=== PATIENT | male | born 1960 | race Caucasian/White ===

== ENCOUNTER → 2018-07-29 15:20 | Outpatient (CLI) | payer OTHER, SELFPAY ==
--- NOTE | 2018-07-29 | LES_PTH ---
PATIENT: JOANA ALVARADO LOC: [facility] U#:[id number] AGE/SX: 64/M ROOM: RE07/29/[address]: Dr. Onesimo Overton MD : [id number] BED: DIS: SPEC #: [id number] RECD: 07/29/18 15:18 STATUS: ALMA MARY #: [id number] JC: 07/29/18 00:[address]: Onesimo Overton DEPT: SURGICAL PATHOLOGY RECD BY: Sha Ricci ENTERED: 07/30/18 12:57 SP TYPE: Lesion OTHR DR: GILDA Tissues: Skin of external ear, NOS Procedures: Surgery Specimen Level IV HEADER OPERATION: Right ear lesion excision with local PRE-OP DIAGNOSIS: Right ear lesion (back of) TISSUE SUBMITTED: Right ear lesion (suture in superior margin) MICROSCOPIC DIAGNOSIS Right ear lesion, biopsy: Seborrheic keratosis, inflamed. AM:baltazar 3/28/19 MICROSCOPIC DESCRIPTION Slides are reviewed. GROSS DESCRIPTION Received in fixative is one container labeled with the patient's name and designated right ear lesion, suture in superior margin. The specimen consists of a cameron-white skin ellipse measuring 3 x 0.6 cm and up to 0.1 cm in thickness. There is a raised, cameron lesion on the surface measuring 0.6 x 0.5 cm. The specimen is inked as follows: superior margin - black, inferior margin - blue. The specimen is serially sectioned and submitted entirely in two cassettes. Cassette 2 contains the lesion. / FARHANA:baltazar 07/30/18 TC:5 CPT: 46480
== END ==
PROVIDERS: Referring Provider Otolaryngology Otolaryngology/Facial Plastic Surgery; Visit Provider Otolaryngology Otolaryngology/Facial Plastic Surgery
DX: L98.9 Disorder of the skin and subcutaneous tissue, unspecified (principal)
CPT/HCPCS: 88305